=== PATIENT | female | born 1965 ===

== ENCOUNTER 2021-08-31 05:50 | Day surgery (SDC) | payer OTHER ==
[2021-08-31] MEDS ORDERED: IBU600 MG PO (08:55)
== END 2021-08-31 13:55 | disposition home or self-care (01) ==
LOC: CIR.AMB 05:50
PROVIDERS: ATTEND Obstetrics & Gynecology Gynecology
DX: N84.0 Polyp of corpus uteri (principal); E03.9 Hypothyroidism, unspecified